=== PATIENT | male | born 1960 | race Hispanic/Latino ===

== ENCOUNTER 2020-12-28 09:00 | Observation (INO) | payer OTHER ==
[2020-12-24 09:40] LABS: EOSINOPHILS % (AUTO) 4.3 % (0.0-8.0); HEMATOCRIT 43.5 % (42-54); LYMPHOCYTES % (AUTO) 49.6 % (21.0-51.0); MEAN CORPUSCULAR HGB CONC 32.9 g/dL (32.0-36.0); MEAN CORPUSCULAR VOLUME 100.5 fL (79-99); MONOCYTES % (AUTO) 13.4 % (3.0-13.0); NEUTROPHILS % (AUTO) 31.3 % (40.0-77.0); PLATELET COUNT (AUTO) 238 K/uL (130-400); RED BLOOD CELL COUNT(AUTO) 4.33 MIL/uL (4.50-6.20); RED CELL DISTRIBUTION WIDTH 13.4 % (11.0-15.5); WHITE BLOOD COUNT (AUTO) 5.1 K/uL (4.8-10.8)
[2020-12-24 09:43] LABS: APPEARANCE,URINE Clear (CLEAR); BILIRUBIN,URINE Negative (NEGATIVE); COLOR,URINE Yellow (YELLOW); GLUCOSE, URINE (UA) Negative (NEGATIVE); KETONES,URINE Negative (NEGATIVE); LEUKOCYTE ESTERASE ,URINE Negative (NEGATIVE); NITRATE,URINE Negative (NEGATIVE); OCCULT BLOOD,URINE Negative (NEGATIVE); PROTEIN,URINE Negative (NEGATIVE); UROBILINOGEN,URINE 0.2 mg/dL (0.2-1.0)
[2020-12-24 09:49] LABS: CREATININE 1.1 mg/dL (0.5-1.5); POTASSIUM 4.5 mmol/L (3.5-5.1)
[2020-12-24 09:53] LABS: INR 1.02 (0.85-1.15); PROTHROMBIN TIME 11.1 SEC (9.6-11.6)
[2020-12-25 11:52] VITALS: BP 107/62
[~2020-12-28] VITALS: Ht 165.1 cm; Wt 93.2 kg
[2020-12-28] VITALS (19 sets, daily range): BP systolic 96–129; BP diastolic 52–84
[~2020-12-28 09:00] MED LIST: APIX5TAB PO; ATOR40TA69 PO; CARV25TA PO; FURO20TA4 PO; METF-444 PO; SACU1TAB PO
[2020-12-28] MEDS ORDERED: 0.9%NACL 1000ML 1,000 ML IV ONE (10:14)
[2020-12-28] MEDS ORDERED: ACETAMINOPHEN 500 MG TABLET ONE (11:32)
[2020-12-28] MEDS ORDERED: METOCLOPRAMIDE 10 MG/2 ML VIAL ONE (11:32)
[2020-12-28] MEDS ORDERED: CELECOXIB 200 MG CAP ONE (11:33)
[2020-12-28] MEDS ORDERED: CEFAZOLIN SODIUM 1 GM VIAL ONE (11:46)
[2020-12-28] MEDS: CEFAZOLIN SODIUM 1 GM VIAL ONE ×2 (11:57→14:15)
[2020-12-28] MEDS ORDERED: MIDAZOLAM HCL 1 MG/ML 2ML VIAL ONE (13:31)
[2020-12-28] MEDS ORDERED: PROPOFOL 10 MG/ML 20ML VIAL IV ONE (13:31)
[2020-12-28] MEDS ORDERED: LIDOCAINE PF 100MG/5ML (2%) SYRINGE 5ML ONE (13:31)
[2020-12-28] MEDS ORDERED: ROCURONIUM 10MG/1ML SYR 10 MG/ML ML ONE (13:32)
[2020-12-28] MEDS ORDERED: KETAMINE 50MG/ML SYRINGE 50 MG/ML DISP.SYRIN IV ONE (13:35)
[2020-12-28] MEDS ORDERED: EPHEDRINE SULFATE 50 MG/ML AMPULE ONE (13:50)
[2020-12-28] MEDS ORDERED: PHENYLEPHRINE HCL 10 MG/ML 1ML VIAL IV ONE ×2 (14:04→14:06)
[2020-12-28] MEDS ORDERED: ONDANSETRON 4MG INJ ONE (16:20)
[2020-12-28] MEDS ORDERED: GLYCOPYRROLATE 1 MG/5 ML SYRINGE ONE (16:20)
[2020-12-28] MEDS ORDERED: NEOSTIGMINE 5MG/5ML SYR IV ONE (16:20)
[2020-12-28] MEDS ORDERED: FENTANYL CITRATE PF 50 MCG/1 ML 2ML VIAL ONE (16:55)
[2020-12-28] MEDS ORDERED: LIDOCAINE HCL-MPF 1% 2ML VIAL IV PRN (17:00)
[2020-12-28] MEDS ORDERED: DiphenhydrAMINE HCL 50 MG/ML VIAL IVP PRN (17:00)
[2020-12-28] MEDS ORDERED: KETOROLAC 15MG/ML VIAL (15MG/ML) IV PRN (17:00)
[2020-12-28] MEDS ORDERED: POTASSIUM CHLORIDE 20MEQ/100ML 100 ML IV PRN (17:00)
[2020-12-28] MEDS ORDERED: POTASSIUM CHLORIDE 10% ELIXIR 20 MEQ/15 ML UDCUP PO PRN (17:00)
[2020-12-28] MEDS ORDERED: KCL 20 MEQ ERTAB PO PRN (17:00)
[2020-12-28] MEDS ORDERED: TEMAZEPAM 15 MG CAPSULE PO PRN (17:00)
[2020-12-28] MEDS: ACETAMINOPHEN 500 MG TABLET PO SCH (17:00)
[2020-12-28] MEDS ORDERED: ONDANSETRON 4MG INJ IVP PRN (17:00)
[2020-12-28] MEDS ORDERED: TRAMADOL HCL 50 MG TABLET PO PRN (17:00)
[2020-12-28] MEDS ORDERED: CALCIUM CARB 500MG PO PRN (17:00)
[2020-12-28] MEDS ORDERED: FERROUS FUMARATE 324 MG TABLET PO PRN (17:00)
[2020-12-28] MEDS ORDERED: MEPERIDINE-PF 25 MG/ML SYG ONE ×2 (17:16→17:30)
[2020-12-28] MEDS: 0.9%NACL 1000ML 1,000 ML IV SCH (18:24)
[2020-12-28] MEDS: APIXABAN 5 MG TABLET PO SCH (19:43)
[2020-12-28] MEDS: SACUBITRIL/VALSARTAN 1 EACH TABLET PO SCH ×2 (20:09→21:00)
[2020-12-28] MEDS: CELECOXIB 200 MG CAP PO SCH (20:09)
[2020-12-28] MEDS: TAMSULOSIN HCL 0.4 MG CAP.ER.24H PO SCH (20:09)
[2020-12-28] MEDS: PREGABALIN 25 MG CAP PO SCH (20:09)
[2020-12-28] MEDS: OXYCODONE HCL 5 MG TAB PO PRN (20:10)
[2020-12-28] MEDS: ATORVASTATIN 40 MG TABLET PO SCH (20:10)
[2020-12-28] MEDS: FAMOTIDINE 20MG TAB PO SCH (20:10)
[2020-12-28] MEDS: CARVEDILOL 12.5 MG TABLET PO SCH (20:11)
[2020-12-28] MEDS: INSULIN HUMULIN R 100 UNIT/ML 3ML SQ SCH (21:00)
[2020-12-28] MEDS: CEFAZOLIN SODIUM 1 GM VIAL IVP SCH (22:26)
[2020-12-29] MEDS: ACETAMINOPHEN 500 MG TABLET PO SCH ×3 (01:00→17:43)
[2020-12-29] MEDS: 0.9%NACL 1000ML 1,000 ML IV SCH ×2 (03:00→13:00)
[2020-12-29 04:39] VITALS: BP 125/52
[2020-12-29 04:53] LABS: HEMATOCRIT 38.4 % (42-54); MEAN CORPUSCULAR HEMOGLOBIN 33.2 pg (27.0-33.0); MEAN CORPUSCULAR VOLUME 103.5 fL (79-99); RED BLOOD CELL COUNT(AUTO) 3.71 MIL/uL (4.50-6.20); RED CELL DISTRIBUTION WIDTH 13.6 % (11.0-15.5)
[2020-12-29 05:04] LABS: CREATININE 1.3 mg/dL (0.5-1.5); POTASSIUM 4.1 mmol/L (3.5-5.1)
[2020-12-29] MEDS: INSULIN HUMULIN R 100 UNIT/ML 3ML SQ SCH ×4 (05:58→21:00)
[2020-12-29] MEDS: CEFAZOLIN SODIUM 1 GM VIAL IVP SCH (05:58)
[2020-12-29] MEDS: METFORMIN HCL 500 MG TAB.SR.24H PO SCH (07:29)
[2020-12-29 07:59] VITALS: BP 126/74
[2020-12-29] MEDS: OXYCODONE HCL 5 MG TAB PO PRN ×2 (08:13→21:54)
[2020-12-29] MEDS: CARVEDILOL 12.5 MG TABLET PO SCH ×2 (09:00→21:53)
[2020-12-29] MEDS: PREGABALIN 25 MG CAP PO SCH ×2 (09:00→21:53)
[2020-12-29 10:37] VITALS: BP 136/61
[2020-12-29] MEDS: FUROSEMIDE 20 MG TABLET PO SCH (11:16)
[2020-12-29] MEDS: SACUBITRIL/VALSARTAN 1 EACH TABLET PO SCH ×2 (11:16→21:52)
[2020-12-29] MEDS: APIXABAN 5 MG TABLET PO SCH ×2 (11:16→21:53)
[2020-12-29] MEDS: CELECOXIB 200 MG CAP PO SCH ×2 (11:16→21:53)
[2020-12-29] MEDS: FAMOTIDINE 20MG TAB PO SCH ×2 (11:17→21:53)
[2020-12-29] MEDS: POLYETHYLENE GLYCOL 3350 17 GM POWD.PACK PO SCH (11:18)
[2020-12-29] MEDS ORDERED: KETOROLAC 30MG VIAL (30MG/ML) ONE (12:26)
[2020-12-29 15:21] VITALS: BP 130/75
[2020-12-29 20:28] VITALS: BP 126/70
[2020-12-29] MEDS: ATORVASTATIN 40 MG TABLET PO SCH (21:52)
[2020-12-29] MEDS: TAMSULOSIN HCL 0.4 MG CAP.ER.24H PO SCH (21:52)
[2020-12-29 23:20] VITALS: BP 110/72
[2020-12-30] MEDS: ACETAMINOPHEN 500 MG TABLET PO SCH ×3 (01:03→16:57)
[2020-12-30 04:18] VITALS: BP 100/69
[2020-12-30] MEDS: INSULIN HUMULIN R 100 UNIT/ML 3ML SQ SCH ×4 (05:52→20:13)
[2020-12-30 07:30] VITALS: BP 115/53
[2020-12-30] MEDS: APIXABAN 5 MG TABLET PO SCH ×2 (08:20→19:40)
[2020-12-30] MEDS: CELECOXIB 200 MG CAP PO SCH ×2 (08:20→19:38)
[2020-12-30] MEDS: POLYETHYLENE GLYCOL 3350 17 GM POWD.PACK PO SCH (08:21)
[2020-12-30] MEDS: FUROSEMIDE 20 MG TABLET PO SCH (08:21)
[2020-12-30] MEDS: PREGABALIN 25 MG CAP PO SCH ×2 (08:24→19:38)
[2020-12-30] MEDS: SACUBITRIL/VALSARTAN 1 EACH TABLET PO SCH ×2 (08:24→19:38)
[2020-12-30] MEDS: CARVEDILOL 12.5 MG TABLET PO SCH ×2 (08:24→19:41)
[2020-12-30] MEDS: FAMOTIDINE 20MG TAB PO SCH ×2 (08:25→19:40)
[2020-12-30] MEDS: METFORMIN HCL 500 MG TAB.SR.24H PO SCH (08:26)
[2020-12-30 11:00] VITALS: BP 104/59
[2020-12-30 16:00] VITALS: BP 95/58
[2020-12-30] MEDS: TAMSULOSIN HCL 0.4 MG CAP.ER.24H PO SCH (19:38)
[2020-12-30] MEDS: ATORVASTATIN 40 MG TABLET PO SCH (19:38)
[2020-12-30 20:17] VITALS: BP 95/66
[2020-12-30] MEDS: OXYCODONE HCL 5 MG TAB PO PRN (21:28)
[2020-12-30 23:22] VITALS: BP 98/60
[2020-12-31] MEDS: ACETAMINOPHEN 500 MG TABLET PO SCH ×2 (00:07→08:27)
[2020-12-31 04:09] VITALS: BP 96/60
[2020-12-31] MEDS: INSULIN HUMULIN R 100 UNIT/ML 3ML SQ SCH (06:10)
[2020-12-31 07:30] VITALS: BP 103/66
[2020-12-31] MEDS: FUROSEMIDE 20 MG TABLET PO SCH (08:15)
[2020-12-31] MEDS: CELECOXIB 200 MG CAP PO SCH (08:15)
[2020-12-31] MEDS: METFORMIN HCL 500 MG TAB.SR.24H PO SCH (08:15)
[2020-12-31] MEDS: FAMOTIDINE 20MG TAB PO SCH (08:16)
[2020-12-31] MEDS: APIXABAN 5 MG TABLET PO SCH (08:16)
[2020-12-31] MEDS: POLYETHYLENE GLYCOL 3350 17 GM POWD.PACK PO SCH (08:16)
[2020-12-31] MEDS: PREGABALIN 25 MG CAP PO SCH (08:27)
[2020-12-31] MEDS: SACUBITRIL/VALSARTAN 1 EACH TABLET PO SCH (09:00)
[2020-12-31] MEDS: CARVEDILOL 12.5 MG TABLET PO SCH (09:00)
[2020-12-31] MEDS ORDERED: HYDR-4060 PO (09:01)
[2020-12-31 11:00] VITALS: BP 103/61
[2020-12-31] MEDS ORDERED: BISACODYL 10 MG SUPP.RECT RC PRN (17:00)
== END 2020-12-31 13:05 ==
LOC: DAH 09:00 → DAHIP 09:01 → DAH 09:01 → 4AH 18:16
PROVIDERS: ADMIT Orthopaedic Surgery; ATTEND Orthopaedic Surgery
DX: M17.12 Unilateral primary osteoarthritis, left knee (principal); Z20.822 Contact with and (suspected) exposure to COVID-19; M25.562 Pain in left knee; R26.89 Other abnormalities of gait and mobility; G89.29 Other chronic pain; E11.9 Type 2 diabetes mellitus without complications; E78.5 Hyperlipidemia, unspecified; D64.9 Anemia, unspecified; I42.9 Cardiomyopathy, unspecified; Z86.73 Personal history of transient ischemic attack (TIA), and cerebral infarction without residual deficits
CPT/HCPCS: 27447; 36415 ×2; 80048 ×2; 81003; 82948 ×13; 85025; 85027; 85610; 87088; 87635; 87641; 88305; 88311; 96374; 96376; 97039 ×5; 97116 ×4; 97164; 97530 ×3; A4215; A4221; A4222; A4223; A4649 ×5; A4663; A4930 ×3; A5120; A9272; C1776; C9803; G0378 ×65; J0690 ×4; J1885; J2001; J2175 ×2; J2250; J2370; J2405; J2704; J2710; J2765; J3010; J3490 ×3; J7030 ×2

== ENCOUNTER 2022-01-12 05:43 | Observation (INO) | payer OTHER ==
[2022-01-10 10:32] LABS: BASOPHILS % (AUTO) 0.8 % (0.0-5.0); EOSINOPHILS % (AUTO) 3.6 % (0.0-8.0); LYMPHOCYTES % (AUTO) 49.6 % (21.0-51.0); MEAN CORPUSCULAR HEMOGLOBIN 33.3 pg (27.0-33.0); MEAN CORPUSCULAR HGB CONC 32.3 g/dL (32.0-36.0); MONOCYTES % (AUTO) 10.2 % (3.0-13.0); NEUTROPHILS % (AUTO) 35.4 % (40.0-77.0); PLATELET COUNT (AUTO) 225 K/uL (130-400); RED BLOOD CELL COUNT(AUTO) 4.27 MIL/uL (4.50-6.20); RED CELL DISTRIBUTION WIDTH 11.9 % (11.0-15.5); WHITE BLOOD COUNT (AUTO) 4.7 K/uL (4.8-10.8)
[2022-01-10 10:37] LABS: APPEARANCE,URINE CLEAR (CLEAR); BILIRUBIN,URINE NEGATIVE (NEGATIVE); COLOR,URINE LIGHT-YELLOW (YELLOW); GLUCOSE, URINE (UA) NEGATIVE (NEGATIVE); KETONES,URINE NEGATIVE (NEGATIVE); LEUKOCYTE ESTERASE ,URINE NEGATIVE Leu/uL (NEGATIVE); NITRATE,URINE NEGATIVE (NEGATIVE); OCCULT BLOOD,URINE NEGATIVE (NEGATIVE); PH,URINE 5.5 (5.0-8.0); PROTEIN,URINE NEGATIVE (NEGATIVE); UROBILINOGEN,URINE 0.2 mg/dL (0.2-1.0)
[2022-01-10 10:38] LABS: ALBUMIN 3.7 g/dL (3.5-5.0); CRP QUANTITATIVE 3.4 mg/L (0.00-9.0); POTASSIUM 4.2 mmol/L (3.5-5.1)
[2022-01-10 10:43] LABS: INR 0.94 (0.85-1.15); PROTHROMBIN TIME 10.3 SEC (9.6-11.6)
[2022-01-10 10:44] LABS: PARTIAL THROMBOPLASTIN TIME 27.9 SEC (26.3-35.5)
[2022-01-11 11:54] VITALS: BP 122/66
[~2022-01-12] VITALS: Ht 165.1 cm; Wt 93.3 kg
[2022-01-12] VITALS (31 sets, daily range): BP systolic 93–131; BP diastolic 52–81
[~2022-01-12 05:43] MED LIST changes: +CARV12.511 PO; -CARV25TA PO; -FURO20TA4 PO; +FURO40TA5 PO; +KETOROLAC 30MG VIAL (30MG/ML) ONE; +ROPIVACAINE 0.5% 5MG/ML 30ML IJ ONE; +SPIR25TA6 PO; +TRANEXAMIC ACID 1000MG/10ML ONE
[2022-01-12] MEDS ORDERED: CEFAZOLIN SODIUM 1 GM VIAL IVPB SCH (06:00)
[2022-01-12] MEDS ORDERED: 0.9%NACL 1000ML 1,000 ML IV ONE (06:37)
[2022-01-12] MEDS ORDERED: MIDAZOLAM HCL 1 MG/ML 2ML VIAL ONE (06:51)
[2022-01-12] MEDS ORDERED: GLYCOPYRROLATE 1 MG/5 ML SYRINGE ONE (06:51)
[2022-01-12] MEDS ORDERED: PROPOFOL 10 MG/ML 20ML VIAL IV ONE (06:51)
[2022-01-12] MEDS ORDERED: ONDANSETRON 4MG INJ ONE (06:51)
[2022-01-12] MEDS ORDERED: ROCURONIUM 10MG/1ML SYR 10 MG/ML ML ONE (06:51)
[2022-01-12] MEDS ORDERED: NOREPINEPHRINE BITARTRATE 1 MG/1 ML ML IV ONE (06:51)
[2022-01-12] MEDS ORDERED: FENTANYL CITRATE PF 50 MCG/1 ML 2ML VIAL ONE ×3 (06:52→10:27)
[2022-01-12] MEDS ORDERED: LIDOCAINE PF 100MG/5ML (2%) SYRINGE 5ML ONE (06:54)
[2022-01-12] MEDS ORDERED: CEFAZOLIN SODIUM 2 GM VIAL IVPB ONE (07:16)
[2022-01-12] MEDS ORDERED: KETOROLAC 30MG VIAL (30MG/ML) IVP ONE (07:50)
[2022-01-12] MEDS ORDERED: ROPIVACAINE 0.5% 5MG/ML 30ML IJ ONE (07:50)
[2022-01-12] MEDS ORDERED: TRANEXAMIC ACID 1000MG/10ML IV ONE (07:55)
[2022-01-12] MEDS ORDERED: DOPAMINE HCL 400 MG/D5%-WATER 250 ML IV STA (07:58)
[2022-01-12] MEDS ORDERED: NEOSTIGMINE 5MG/5ML SYR IV ONE (08:48)
[2022-01-12] MEDS ORDERED: HYDROCODONE/ACETAMINOPHEN 5/325 MG TAB PO PRN ×2 (09:00→09:30)
[2022-01-12] MEDS ORDERED: ONDANSETRON 4MG INJ IVP PRN (09:00)
[2022-01-12] MEDS ORDERED: KETOROLAC 15MG/ML VIAL (15MG/ML) IV PRN (09:00)
[2022-01-12] MEDS ORDERED: POTASSIUM CHLORIDE 20MEQ/100ML 100 ML IV PRN (09:00)
[2022-01-12] MEDS ORDERED: 0.9%NACL 1000ML 1,000 ML IV SCH (09:00)
[2022-01-12] MEDS: KETOROLAC 15MG/ML VIAL (15MG/ML) IV SCH ×2 (09:00→18:05)
[2022-01-12] MEDS ORDERED: LIDOCAINE HCL-MPF 1% 2ML VIAL IV PRN (09:00)
[2022-01-12] MEDS ORDERED: FERROUS FUMARATE 324 MG TABLET PO PRN (09:00)
[2022-01-12] MEDS ORDERED: POTASSIUM CHLORIDE 10% ELIXIR 20 MEQ/15 ML UDCUP PO PRN (09:00)
[2022-01-12] MEDS ORDERED: DiphenhydrAMINE HCL 50 MG/ML VIAL IVP PRN (09:00)
[2022-01-12] MEDS ORDERED: SUGAMMADEX SODIUM 200 MG/2 ML VIAL IV ONE (09:01)
[2022-01-12] MEDS ORDERED: MEPERIDINE-PF 25 MG/ML SYG ONE (09:30)
[2022-01-12] MEDS: INSULIN HUMULIN R 100 UNIT/ML 3ML SQ SCH ×3 (11:30→21:00)
[2022-01-12] MEDS: GABAPENTIN 100 MG CAPSULE PO SCH ×3 (14:00→21:05)
[2022-01-12] MEDS: POLYETHYLENE GLYCOL 3350 17 GM POWD.PACK PO SCH (15:45)
[2022-01-12] MEDS: CEFAZOLIN SODIUM 1 GM VIAL IVP SCH ×2 (15:46→19:31)
[2022-01-12] MEDS: SACUBITRIL/VALSARTAN 1 EACH TABLET PO SCH (21:05)
[2022-01-12] MEDS: CARVEDILOL 12.5 MG TABLET PO SCH (21:05)
[2022-01-12] MEDS: ATORVASTATIN 40 MG TABLET PO SCH (21:05)
[2022-01-13] VITALS: BP 103/48
[2022-01-13] MEDS: KETOROLAC 15MG/ML VIAL (15MG/ML) IV SCH (01:37)
[2022-01-13] MEDS ORDERED: CEFAZOLIN SODIUM 1 GM VIAL ONE (03:30)
[2022-01-13] MEDS: CEFAZOLIN SODIUM 1 GM VIAL IVP SCH (03:36)
[2022-01-13 04:00] VITALS: BP 96/46
[2022-01-13 04:26] LABS: HEMATOCRIT 39.2 % (42-54); MEAN CORPUSCULAR HEMOGLOBIN 32.9 pg (27.0-33.0); MEAN CORPUSCULAR HGB CONC 31.9 g/dL (32.0-36.0); MEAN CORPUSCULAR VOLUME 103.2 fL (79-99); RED BLOOD CELL COUNT(AUTO) 3.8 MIL/uL (4.50-6.20); RED CELL DISTRIBUTION WIDTH 12.2 % (11.0-15.5); WHITE BLOOD COUNT (AUTO) 6.5 K/uL (4.8-10.8)
[2022-01-13 04:39] LABS: CREATININE 1.2 mg/dL (0.5-1.5); POTASSIUM 3.8 mmol/L (3.5-5.1)
[2022-01-13] MEDS: CALCIUM CARB 500MG PO PRN ×2 (04:52→09:09)
[2022-01-13] MEDS: KCL 20 MEQ ERTAB PO PRN ×2 (04:53→09:08)
[2022-01-13] MEDS: CYCLOBENZAPRINE HCL 10 MG TABLET PO PRN (04:53)
[2022-01-13] MEDS: INSULIN HUMULIN R 100 UNIT/ML 3ML SQ SCH ×4 (06:03→21:00)
[2022-01-13 08:00] VITALS: BP 113/70
[2022-01-13] MEDS: GABAPENTIN 100 MG CAPSULE PO SCH ×3 (09:07→21:03)
[2022-01-13] MEDS: CARVEDILOL 12.5 MG TABLET PO SCH ×2 (09:08→21:04)
[2022-01-13] MEDS: FUROSEMIDE 40 MG TABLET PO SCH (09:08)
[2022-01-13] MEDS: ASPIRIN 325MG TAB PO SCH (09:09)
[2022-01-13] MEDS: SPIRONOLACTONE 25 MG TAB PO SCH (09:09)
[2022-01-13] MEDS: POLYETHYLENE GLYCOL 3350 17 GM POWD.PACK PO SCH (09:09)
[2022-01-13] MEDS: SACUBITRIL/VALSARTAN 1 EACH TABLET PO SCH ×2 (09:09→21:04)
[2022-01-13] MEDS: METFORMIN HCL 500 MG TAB.SR.24H PO SCH (09:09)
[2022-01-13 12:00] VITALS: BP 126/75
[2022-01-13 16:00] VITALS: BP 131/70
[2022-01-13 20:00] VITALS: BP 127/64
[2022-01-13] MEDS: ATORVASTATIN 40 MG TABLET PO SCH (21:03)
[2022-01-14] VITALS: BP 115/72
[2022-01-14 04:00] VITALS: BP 115/62
[2022-01-14] MEDS: CYCLOBENZAPRINE HCL 10 MG TABLET PO PRN ×2 (06:08→14:16)
[2022-01-14] MEDS: INSULIN HUMULIN R 100 UNIT/ML 3ML SQ SCH ×2 (06:08→11:30)
[2022-01-14 08:00] VITALS: BP 131/77
[2022-01-14] MEDS: ASPIRIN 325MG TAB PO SCH (09:03)
[2022-01-14] MEDS: METFORMIN HCL 500 MG TAB.SR.24H PO SCH (09:03)
[2022-01-14] MEDS: CARVEDILOL 12.5 MG TABLET PO SCH (09:04)
[2022-01-14] MEDS: SACUBITRIL/VALSARTAN 1 EACH TABLET PO SCH (09:05)
[2022-01-14] MEDS: SPIRONOLACTONE 25 MG TAB PO SCH (09:05)
[2022-01-14] MEDS: FUROSEMIDE 40 MG TABLET PO SCH (09:05)
[2022-01-14] MEDS: POLYETHYLENE GLYCOL 3350 17 GM POWD.PACK PO SCH (09:05)
[2022-01-14] MEDS: GABAPENTIN 100 MG CAPSULE PO SCH ×2 (09:06→14:16)
[2022-01-14 11:00] VITALS: BP 132/81
[2022-01-14 16:00] VITALS: BP 120/65
[2022-01-15] MEDS ORDERED: BISACODYL 10 MG SUPP.RECT RC PRN (09:00)
== END 2022-01-14 18:00 ==
LOC: DAH 05:43 → DAHIP 05:44 → DAH 05:44 → 4CH 12:05
PROVIDERS: ADMIT Student in an Organized Health Care Education/Training Program; ATTEND Student in an Organized Health Care Education/Training Program
DX: M17.11 Unilateral primary osteoarthritis, right knee (principal); Z20.822 Contact with and (suspected) exposure to COVID-19; D62 Acute posthemorrhagic anemia; I50.22 Chronic systolic (congestive) heart failure; E11.9 Type 2 diabetes mellitus without complications; E78.5 Hyperlipidemia, unspecified; Z79.899 Other long term (current) drug therapy; Z86.73 Personal history of transient ischemic attack (TIA), and cerebral infarction without residual deficits
CPT/HCPCS: 97039 ×6; 82040; 80048 ×2; 85025; 85610; 85730; 87088; 84134; 86140; 87426; 81003; 36415 ×2; 87641; 27447; 96374; 96375; 76942; 64447; 82948 ×11; 73560; 97161; 96376; 85027; 97116 ×4; 97530 ×2; J1815; G0378 ×55; A4663; J7030 ×2; A4215 ×2; A4600; J3010 ×2; J0690 ×4; J3490 ×2; J2001; J2250; J2704; J2405; J1885 ×6; J2175; J2795 ×3; J1265; C1713; G0168; C1776 ×2; A4649 ×3; A6255; A5120; A4223; A4222; A4221; J2710